=== PATIENT | male | born 1995 | race Two or more races ===

== ENCOUNTER 2018-02-13 04:42 | Emergency (ER) | payer OTHER ==
[~2018-02-13] VITALS: Ht 180.3 cm; Wt 59.0 kg
[2018-02-13] MEDS ORDERED: Tetanus/Diptheria/Pertussis Vaccine 0.5ml Syr IM ONE (04:45)
[2018-02-13] MEDS ORDERED: Bacitracin Oint UD TOPIC ONE (04:45)
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
[2018-02-13 05:06] VITALS: BP 116/79
[2018-02-13 05:06] LABS: BASOPHILS % (AUTO) 1.1 % (0.0-2.0); EOSINOPHILS % (AUTO) 0.8 % (0.0-3.0); HEMATOCRIT 50.9 % (42.0-52.0); HEMOGLOBIN 16.3 G/DL (14.2-18.0); LYMPHOCYTES % (AUTO) 44.5 % (20.0-45.0); MEAN CORPUSCULAR VOLUME 86 FL (80-99); MONOCYTES % (AUTO) 6.7 % (1.0-10.0); NEUTROPHILS % (AUTO) 46.9 % (45.0-75.0); PLATELET COUNT 349 K/UL (150-450); RED BLOOD COUNT 5.95 M/UL (4.70-6.10); RED CELL DISTRIBUTION WIDTH 12.3 % (11.6-14.8); WHITE BLOOD COUNT 6.9 K/UL (4.8-10.8)
[2018-02-13 05:31] LABS: ANION GAP 21 mmol/L (5-15); BLOOD UREA NITROGEN 12 mg/dL (7-18); CALCIUM 9.6 MG/DL (8.5-10.1); CARBON DIOXIDE 19 MMOL/L (21-32); CHLORIDE 102 MMOL/L (98-107); CREATININE 1.6 MG/DL (0.55-1.30); POTASSIUM 3.3 MMOL/L (3.5-5.1); SODIUM 141 MMOL/L (136-145)
[2018-02-13 05:35] LABS: ALANINE AMINOTRANSFERASE 29 U/L (12-78); ALBUMIN 4.1 G/DL (3.4-5.0); ALBUMIN/GLOBULIN RATIO 1.1 (1.0-2.7); ALKALINE PHOSPHATASE 85 U/L (46-116); ASPARTATE AMINO TRANSFERASE 29 U/L (15-37); BILIRUBIN,TOTAL 0.4 MG/DL (0.2-1.0); CREATINE KINASE 239 U/L (26-308)
[2018-02-13 05:49] VITALS: BP 102/55
[2018-02-13 06:29] LABS: APPEARANCE,URINE CLEAR; BILIRUBIN, URINE NEGATIVE (NEGATIVE); COLOR,URINE YELLOW; GLUCOSE, URINE (UA) NEGATIVE (NEGATIVE); KETONES,URINE 1+ (NEGATIVE); LEUKOCYTE ESTERASE ,URINE NEGATIVE (NEGATIVE); NITRITE,URINE NEGATIVE (NEGATIVE); PH,URINE 6 (4.5-8.0); PROTEIN,URINE 3+ (NEGATIVE); UROBILINOGEN,URINE 1 MG/DL (0.0-1.0)
[2018-02-13] MEDS ORDERED: TYLENOL325 MG ORAL (06:29)
[2018-02-13] MEDS ORDERED: BACITRACIN15 GM TOPIC (06:29)
[2018-02-13 06:31] VITALS: BP 108/60
--- NOTE | 2018-02-13 06:33 | Diagnostic Imaging Report ---
EXAM: XR Left Forearm, 2 Views. CLINICAL HISTORY: TRAUMA TECHNIQUE: Frontal and lateral views of the left forearm. COMPARISON: No relevant prior studies available. FINDINGS: Bones: No acute fracture. Joints: No dislocation. Soft tissues: Unremarkable. IMPRESSION: No fracture or dislocation.
--- NOTE | 2018-02-13 06:34 | Diagnostic Imaging Report ---
EXAM: XR Left Shoulder Complete, 2 or More Views. CLINICAL HISTORY: TRAUMA TECHNIQUE: 3 views of the left shoulder. COMPARISON: No relevant prior studies available. FINDINGS: Bones: There is no evidence of acute fracture. Questionable chronic Hill-Sachs deformity of the humeral head. Joints: No dislocation. Soft tissues: Unremarkable. IMPRESSION: No evidence of acute fracture or dislocation. Questionable chronic Hill-Sachs deformity of the humeral head. Please correlate for history of prior shoulder dislocation.
[2018-02-13 06:38] VITALS: BP 108/60
--- NOTE | 2018-02-16 15:21 | Cardiology Report ---
APPROVED REPORT EKG Measurement Heart [id number] OR 142P76 [id number] Sinus tachycardia Otherwise normal ECG
== END 2018-02-13 06:35 ==
LOC: EDBD 04:42 → EMR 06:35
DX: S40.012A Contusion of left shoulder, initial encounter (principal); S50.12XA Contusion of left forearm, initial encounter; Z23 Encounter for immunization; N28.9 Disorder of kidney and ureter, unspecified; F17.200 Nicotine dependence, unspecified, uncomplicated; F19.10 Other psychoactive substance abuse, uncomplicated; Y35.813A Legal intervention involving manhandling, suspect injured, initial encounter
CPT/HCPCS: 36415; 73030; 73090; 80053; 80307; 81003; 82550; 85025; 90471; 90715; 93005; 96360; 99284; G0480; 80329